=== PATIENT | male | born 1985 | race Caucasian/White ===

== ENCOUNTER 2018-05-02 08:26 | Emergency (ER) | payer OTHER, MEDICAID ==
[~2018-05-02] VITALS: Ht 182.9 cm; Wt 105.1 kg
[2018-05-02] MEDS ORDERED: CYCL-1 PO (08:50)
[2018-05-02] MEDS ORDERED: NAPR-56 PO (08:50)
[2018-05-02] MEDS ORDERED: ketorolac trometh inj. 60 MG/2 ML VIAL IM ONE (08:50)
[2018-05-02 09:14] VITALS: BP 131/82
== END 2018-05-02 09:19 | disposition home or self-care (01) ==
LOC: ER 08:27
DX: M25.511 Pain in right shoulder (principal); M62.838 Other muscle spasm
CPT/HCPCS: 96372; 99283; J1885